=== PATIENT | male | born 1975 | race Caucasian/White ===

== ENCOUNTER → 2017-08-21 | Outpatient (CLI) | payer OTHER ==
[2017-08-21 12:54] LABS: EOS # 0.1 (0.04-0.40); EOS % 2.5 % (0.0-4.0); HEMATOCRIT 45.3 % (42.0-52.0); HEMOGLOBIN 14.7 g/dL (13.5-18.0); LYMPH# 1.1 (1.50-4.00); MEAN CELL VOLUME 83 fl (78-100); MEAN CORPUSCULAR HEMOGLOBIN 27 pg (27-31); MEAN CORPUSCULAR HGB CONC 33 g/dL (33-37); MEAN PLATELET VOLUME 9.5 fl (7.4-10.4); MONO # 0.4 (0.20-0.80); NEU # 3.6 (1.40-6.50); PLATELET COUNT 181 K/mm3 (130-400); RED BLOOD COUNT 5.44 M/mm3 (4.20-5.60); RED CELL DISTRIBUTION WIDTH 13.3 % (11.5-14.5); WHITE BLOOD COUNT 5.3 K/mm3 (4.8-10.8)
[2017-08-21 14:04] LABS: ERYTHROCYTE SEDIMENTATION RATE 4 mm/hr (0-15)
== END ==
LOC: RAD 12:31
PROVIDERS: Nurse Practitioner Primary Care
DX: M25.572 Pain in left ankle and joints of left foot (principal)